=== PATIENT | female | born 1990 | race African-American/Black ===

== ENCOUNTER 2019-04-13 09:57 | Inpatient (IN) ==
[2019-04-13] MEDS ORDERED: HUMULIN R IV ONE (10:40)
[2019-04-13] MEDS ORDERED: ZOFRAN IV ONE (10:40)
[2019-04-13] MEDS ORDERED: NS 1,000 ML IV ONE (10:40)
[2019-04-13 11:02] LABS: BASO# 0.03 X1000 (0.0-0.2); BASO% 0.4 % (0.0-0.8); EOS# 0.21 X1000 (0.0-0.7); EOS% 2.9 % (0.0-10.0); HEMATOCRIT 30.9 % (37.0-47.0); IMM GRAN# 0.03 X1000 (0.0-0.04); IMM GRAN% 0.4 % (0.0-0.5); LYMPH# 0.93 X1000 (1.2-3.4); LYMPH% 12.9 % (20.5-51.1); MCH 31.5 PG (27-31); MCHC 35.6 g/dL (33-37); MCV 88.5 FL (81-99); MONO# 0.52 X1000 (0.11-0.59); MONO% 7.2 % (1.7-9.3); MPV 9.9 FL (7.4-10.4); NEUT% 76.2 % (42.2-75.2); PLT 348 X1000 (130-400); RBC 3.49 XMIL (4.2-5.4); RDW 11.7 % (11.5-14.5); WBC 7.22 X1000 (4.8-10.8)
[2019-04-13 11:16] LABS: CREATININE 1.1 mg/dL (0.5-0.9); POTASSIUM 3.9 mmol/L (3.5-5.1)
[2019-04-13 11:17] LABS: ALB/GLOB RATIO 1.1; ALBUMIN 3.5 g/dL (3.5-5.0); TOTAL BILIRUBIN 0.38 mg/dL (0.20-1.00); TOTAL PROTEIN 6.8 g/dL (6.3-8.3)
[2019-04-13 11:23] LABS: HEMOGLOBIN A1C 9.8 % (4.8-6.0)
--- NOTE | 2019-04-13 11:46 | EKG Report ---
Test Performed on : 04/13/2019 10:11:54 AM Test Reason : sob, CP Blood Pressure : / mmHG Vent. Rate : 103 BPM Atrial Rate : 103 BPM P-R Int : 124 ms QRS Dur : 078 ms QT Int : 336 ms P-R-T Axes : 060 053 049 degrees QTc Int : 440 ms Sinus tachycardia. Otherwise normal ECG No previous ECGs available Unconfirmed Result
--- NOTE | 2019-04-13 12:27 | Diag Imaging Result Doc PS360 ---
CHEST-1 VIEW - 04/13/2019 INDICATION: sob, CP COMPARISON: None FINDINGS: The lungs are normally expanded and clear. Heart size and mediastinal contours are normal. No pneumothorax or pleural effusion. IMPRESSION: Negative exam. Electronically signed by Bhavesh Cardona 04/13/2019 12:24 PM
--- NOTE | 2019-04-13 15:50 | Diag Imaging Result Doc PS360 ---
EXAM: CT ANGIOGRM PULMONARY ARTERIES 04/13/2019 HISTORY: difficulty breathing, left arm swollen TECHNIQUE: This exam was performed using automated exposure control, adjustment of mA or kV according to patient size, and/or use of iterative reconstruction technique. COMMENT: 3-D MIPS were performed. There are no previous studies available for comparison. There are no filling defects in the pulmonary arteries. The thoracic aorta is normal in caliber and there is no evidence of dissection. There is some dependent atelectasis in the lower lobes. There is a cavitary lesion in the lingula measuring 12 mm in diameter. There is a pulmonary nodule just posterior to the major fissure in the right lower lobe on image 96 measuring 8 mm in diameter. There is a nodule in the posterior medial costophrenic sulcus of the right lower lobe on image 120 measuring 6 mm in diameter. None of these lesions are calcified. There is no discrete adenopathy. Otherwise, there is no evidence of pulmonary parenchymal disease. The regional skeleton is intact. IMPRESSION: Multiple pulmonary nodules with cavitary lesion in the lingula. No evidence of pulmonary arterial filling defects. The possibility of septic emboli cannot be excluded, and further evaluation with echocardiography may be desirable. Electronically signed by Ariel Bates 04/13/2019 3:48 PM
[2019-04-13] MEDS ORDERED: 1/2 NS + KCL 20 MEQ 1,000 ML IV ONE (17:34)
[2019-04-13] MEDS ORDERED: NORVASC PO ONE ×2 (17:35→23:00)
--- NOTE | 2019-04-13 17:55 | PROVIDER DOCUMENTATION ---
This chart was entered by Carolyn Monterroso Scribe, acting as scribe for Scooter Acosta MD. HPI-Chest Pain - General Chief Complaint: High Blood Sugar Stated Complaint: BLOOD SUGAR HIGH/DIZZY Time Seen by Provider: 04/13/19 10:08 Source: patient Allergies/Adverse Reactions: Patient Allergies Allergy/AdvReac Type Severity Reaction Status Date / Time No Known Allergies Allergy Verified 04/13/19 10:31 Home Medications: Home Medication List Medication Instructions Recorded Confirmed Last Taken Type Hum Insulin NPH/Reg Insulin Hm 35 unit SQ BID 04/13/19 04/13/19 04/12/19 History [Novolin 70-30 100 Unit/ml Vial] 35 units - History of Present Illness-CP Nature of Presenting Problem: Patient is a 28 year old female who presents with chest pain, lightheadedness, and nausea that started this morning while at work. 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 Reports FSBS was 304 at work. States she takes insulin. Location: reports: central Chest Pain Radiation: reports: no radiation Quality of Pain: reports: aching Severity in ED: mild Onset/Duration: this morning Timing: still present Context/Activities at Onset: reports: light activity Associated Symptoms: reports: nausea Similar Symptoms Previously?: No Recently Seen Here or By Another Healthcare Provider: No Review of Systems - Adult - REVIEW OF SYSTEMS - ADULT Constitutional: reports: no symptoms reported. denies: chills, fever, fatique Eyes: reports: no symptoms reported Ears, Nose, Mouth & Throat: reports: no symptoms reported Cardiovascular: reports: see HPI, chest pain. denies: heart murmur, orthopnea Respiratory: reports: no symptoms reported Gastrointestinal: reports: see HPI, nausea. denies: abdominal pain, diarrhea, vomiting Genitourinary: reports: no symptoms reported Musculoskeletal: reports: no symptoms reported Integumentary: reports: no symptoms reported Neurological: reports: see HPI, other (lightheadedness). denies: dizziness/vertigo, headache/migraines, seizure Psychiatric: reports: no symptoms reported Endocrine: reports: no symptoms reported Hematologic/Lymphatic: reports: no symptoms reported Allergic/Immunologic: reports: no symptoms reported All Other Systems: Reviewed and Negative Past History - Adult - PAST MEDICAL HISTORY-ADULT Review of Records: reports: Old Records Reviewed, Nursing Assessment Review, Medications Reviewed, Social history reviewed & non-contributory. Major Childhood Illnesses: reports: denies history Cardiovascular: reports: denies history Respiratory: reports: denies history Gastrointestinal: reports: denies history Obstetrical/Gynecological: reports: denies history Genitourinary: reports: denies history Musculoskeletal: reports: denies history Neurological: reports: denies history Endocrine/Immune: reports: Diabetes Other Conditions: reports: denies history - PRIOR SURGERIES/PROCEDURES Surgical/Procedure History: reports: reviewed, not pertinent - IMMUNIZATION STATUS Childhood Immunizations: See Nurse Assessment Flu Vaccine: See Nurse Assessment - FAMILY HISTORY Family History: reviewed, not pertinent - SOCIAL HISTORY Smoking: denies Substance Use: denies Living Situation: family Physical Exam-General - PHYSICAL EXAM-ADULT Initial Vital Signs Reviewed: Yes - CONSTITUTIONAL General Appearance: alert, no apparent distress. negative: lethargic, slow to respond - HEAD, EARS, NOSE, MOUTH & THROAT HENMT: normocephalic/atraumatic, moist mucous membranes. negative: angioedema, hearing deficit - RESPIRATORY Respiratory: chest non-tender, lungs clear, normal breath sounds. negative: crackles, stridor - CARDIOVASCULAR Cardiovascular: normal peripheral pulses, regular rate, rhythm. negative: tachycardia, systolic murmur - GASTROINTESTINAL (ABDOMEN) Abdominal Exam: normal bowel sounds, non tender, soft. negative: guarding, rebound - MUSCULOSKELETAL Extremity: non-tender, normal inspection. negative: deformity, erythema, swelling - SKIN Integumentary: normal color, normal turgor, warm/dry. negative: cyanosis, diaphoresis, ecchymosis, erythema, jaundice, rash - NEUROLOGIC Neurologic: grossly normal. negative: aphasia, facial droop - PSYCHIATRIC Psych/Mental Status: normal mood/affect, oriented x 3. negative: anxious Progress - PLAN OF CARE/RESULTS Progress/Plan/Lab Results: Vital Signs - 8 hr 04/13/19 10:00 04/13/19 10:13 04/13/19 10:50 Temperature 97.8 F Pulse Rate 104 H 85 Respiratory Rate 18 20 Blood Pressure 155/99 168/102 O2 Sat by Pulse Oximetry 98 99 99 04/13/19 11:55 04/13/19 12:02 04/13/19 12:32 Temperature Pulse Rate Respiratory Rate Blood Pressure 152/91 161/101 156/100 O2 Sat by Pulse Oximetry 100 100 100 04/13/19 13:02 Temperature Pulse Rate Respiratory Rate Blood Pressure 159/108 O2 Sat by Pulse Oximetry 100 Bedside Urine ED: Urine Bedside Start: 04/13/19 10:40 Freq: ORDERED Status: Active Protocol: Activity Type Activity Date Activity User E-Sign Co-Sign Detail Recorded Client Recorded Date Recorded By Document 04/13/19 11:52 [id number] 04/13/19 11:54 [id number] 04/13/19 11:52 Point of Care [Bedside Point of Care] -Lot # [id number] - Results Negative -Control Line Visible? Yes -Additional Comment EXP: 2020-08-20 Laboratory Results - last 24 hr 04/13/19 04/13/19 04/13/19 10:04 10:25 10:25 WBC 7.22 RBC 3.49 L Hgb 11.0 L Hct 30.9 L MCV 88.5 MCH 31.5 H MCHC 35.6 RDW Std Deviation 11.7 Plt Count 348 MPV 9.9 Immature Gran % (Auto) 0.4 Neut % (Auto) 76.2 H Lymph % (Auto) 12.9 L Grady % (Auto) 7.2 Eos % (Auto) 2.9 Baso % (Auto) 0.4 Immature Gran # (Auto) 0.03 Neut # (Auto) 5.50 Lymph # (Auto) 0.93 L Grady # (Auto) 0.52 Eos # (Auto) 0.21 Baso # (Auto) 0.03 D-Dimer, Quantitative Sodium 138 Potassium 3.9 Chloride 100 Carbon Dioxide 25 Anion Gap 13 BUN 20 Creatinine 1.1 H Estimated GFR/1.73 m2 59 BUN/Creatinine Ratio 18 Glucose 290 H POC Glucose 298 H Estimat Average Glucose Hemoglobin A1c Calculated Osmolality 289 Calcium 9.0 Total Bilirubin 0.38 AST 18 ALT 15 Alkaline Phosphatase 129 H Troponin T Total Protein 6.8 Albumin 3.5 Globulin 3.3 Albumin/Globulin Ratio 1.1 04/13/19 04/13/19 04/13/19 10:25 10:25 10:25 WBC RBC Hgb Hct MCV MCH MCHC RDW Std Deviation Plt Count MPV Immature Gran % (Auto) Neut % (Auto) Lymph % (Auto) Grady % (Auto) Eos % (Auto) Baso % (Auto) Immature Gran # (Auto) Neut # (Auto) Lymph # (Auto) Grady # (Auto) Eos # (Auto) Baso # (Auto) D-Dimer, Quantitative 0.87 H Sodium Potassium Chloride Carbon Dioxide Anion Gap BUN Creatinine Estimated GFR/1.73 m2 BUN/Creatinine Ratio Glucose POC Glucose Estimat Average Glucose 235 Hemoglobin A1c 9.8 H Calculated Osmolality Calcium Total Bilirubin AST ALT Alkaline Phosphatase Troponin T < 0.010 Total Protein Albumin Globulin Albumin/Globulin Ratio 04/13/19 13:31 WBC RBC Hgb Hct MCV MCH MCHC RDW Std Deviation Plt Count MPV Immature Gran % (Auto) Neut % (Auto) Lymph % (Auto) Grady % (Auto) Eos % (Auto) Baso % (Auto) Immature Gran # (Auto) Neut # (Auto) Lymph # (Auto) Grady # (Auto) Eos # (Auto) Baso # (Auto) D-Dimer, Quantitative Sodium Potassium Chloride Carbon Dioxide Anion Gap BUN Creatinine Estimated GFR/1.73 m2 BUN/Creatinine Ratio Glucose POC Glucose 154 H Estimat Average Glucose Hemoglobin A1c Calculated Osmolality Calcium Total Bilirubin AST ALT Alkaline Phosphatase Troponin T Total Protein Albumin Globulin Albumin/Globulin Ratio Orders Category Date Time Status Admit - [facility] Routine AdmDCTranf 04/13/19 17:28 Active Activity - Up with Assistance ORDERED Care 04/13/19 17:28 Active ED: Urine Bedside ORDERED Care 04/13/19 10:40 Active Finger Stick Blood Sugar (ED) DIRECTED Care 04/13/19 10:41 Active Intake and Output-Strict ORDERED Care 04/13/19 17:28 Active Nursing- Obtain EKG ONCE Care 04/13/19 10:39 Completed Orthostatic Vital Signs NOW Care 04/13/19 17:35 Active Vital Signs Order Q 8-HR ASSESS Care 04/13/19 17:28 Active Z-Document. for Tele Applied ORDERED Care 04/13/19 17:28 Active Diabetic Diet Diet 04/13/19 17:28 Active CHEST-1 VIEW [RAD] Stat Exams 04/13/19 10:[address] ANGIOGRM PULMONARY ARTERIES [CT] Stat Exams 04/13/19 12:[address] HEAD W/O CONTRAST [CT] Routine Exams 04/13/19 17:33 Ordered A1C [A1C HGB W EST AVG GLUCOSE] [CHEM] Stat Lab 04/13/19 10:25 Completed ZACHARY W/REFLEX [HH] Stat Lab 04/13/19 17:40 Uncollected C-PEPTIDE [HH] Stat Lab 04/13/19 17:32 Ordered CBC WITH DIFF [HEME] Routine Lab 04/14/19 06:00 Uncollected CBC WITH ELECTRONIC DIFF [HEME] Stat Lab 04/13/19 10:25 Completed COMPREHENSIVE METABOLIC PANEL [CHEM] Routine Lab 04/14/19 06:00 Uncollected COMPREHENSIVE METABOLIC PANEL [CHEM] Stat Lab 04/13/19 10:25 Completed D-DIMER [COAG] Stat Lab 04/13/19 10:25 Completed FERRITIN Routine Lab 04/14/19 06:00 Ordered FOLATE Routine Lab 04/14/19 06:00 Uncollected GAD65 AB ASSAY [BLOOM] Stat Lab 04/13/19 17:32 Ordered LIPASE [CHEM] Stat Lab 04/13/19 17:33 Ordered PROTIME WITH INR [COAG] Routine Lab 04/14/19 06:00 Uncollected TOTAL IRON [CHEM] Routine Lab 04/14/19 06:00 Uncollected TROPONIN T Routine Lab 04/13/19 17:28 Uncollected TROPONIN T Stat Lab 04/13/19 10:25 Completed TSH Routine Lab 04/14/19 06:00 Uncollected UIBC W TOTAL IRON [CHEM] Routine Lab 04/14/19 06:00 Uncollected VITAMIN B12 Routine Lab 04/14/19 06:00 Uncollected 0.9% Sodium Chloride Inj [Ns] 1,000 ml Med 04/13/19 10:40 Discontinued IV 999 mls/hr 1/2 Ns + KCl 20 Meq 1,000 ml Med 04/13/19 17:34 Active IV 85 mls/hr Amlodipine [Norvasc] Med 04/14/19 09:00 Ordered 10 mg PO DAILY Amlodipine [Norvasc] Med 04/13/19 17:35 Discontinued 10 mg PO NOW ONE Insulin Degludec [Tresiba Flextouch U-100] Med 04/13/19 21:00 Ordered 20 unit SUBQ QHS Insulin Human Regular [Humulin R] Med 04/13/19 10:40 Discontinued 10 unit IV NOW ONE Insulin Lispro [Humalog] Med 04/14/19 09:00 Ordered 5 units SUBQ TID Insulin Lispro [Humalog] Med 04/13/19 21:00 Active See Protocol SUBQ 0700,1100,1600,2100 Ondansetron [Zofran] Med 04/13/19 10:40 Discontinued 4 mg IV NOW ONE Telemetry [OM.EQ] Routine Oth 04/13/19 17:28 Active EKG [EKG] Stat Ther 04/13/19 10:39 Draft Echo Spec/Color Doppler Stat Ther 04/13/19 16:34 Ordered Physical Therapy Eval/Treatment [OM.PT] Routine Ther 04/13/19 17:28 Active Venous U/S Bilateral Legs Stat Ther 04/13/19 12:59 Completed Transfer/Admit Order [TRANSFER] Routine Transfer 04/13/19 17:35 Ordered Result Diagrams: 04/13/19 10:25 04/13/19 10:25 - EKG 1 Time of EKG reading by physician:: 10:11 EKG Read and Signed by:: Scooter Acosta EKG Interpretation (*Must complete 3 of following elements*): Abnormal Rate: 103 Rhythm: sinus tachycardia Freeman: normal OK Interval: normal Comments: otherwise normal ECG - XRAY 1 XRAY Study: Chest Impression: See EMR Report ( CHEST-1 VIEW - 04/13/2019 INDICATION: sob, CP COMPARISON: None FINDINGS: The lungs are normally expanded and clear. Heart size and mediastinal contours are normal. No pneumothorax or pleural effusion. IMPRESSION: Negative exam. Electronically signed by Bhavesh Cardona 04/13/2019 12:24 PM 04/13/19 1224 Interpreting Physician: Bhavesh Cardona MD Dictated Date/Time: 04/13/19 1224 cc: Scooter Acosta MD; None,PCP) - CT/MRI 1 CT Study: Angiogram Impression: See EMR Report (Signed EXAM: CT ANGIOGRM PULMONARY ARTERIES 04/13/2019 HISTORY: difficulty breathing, left arm swollen TECHNIQUE: This exam was performed using automated exposure control, adjustment of mA or kV according to patient size, and/or use of iterative reconstruction technique. COMMENT: 3-D MIPS were performed. There are no previous studies available for comparison. There are no filling defects in the pulmonary arteries. The thoracic aorta is normal in caliber and there is no evidence of dissection. There is some dependent atelectasis in the lower lobes. There is a cavitary lesion in the lingula measuring 12 mm in diameter. There is a pulmonary nodule just posterior to the major fissure in the right lower lobe on image 96 measuring 8 mm in diameter. There is a nodule in the posterior medial costophrenic sulcus of the right lower lobe on image 120 measuring 6 mm in diameter. None of these lesions are calcified. There is no discrete adenopathy. Otherwise, there is no evidence of pulmonary parenchymal disease. The regional skeleton is intact. IMPRESSION: Multiple pulmonary nodules with cavitary lesion in the lingula. No evidence of pulmonary arterial filling defects. The possibility of septic emboli cannot be excluded, and further evaluation with echocardiography may be desirable. Electronically signed by Ariel Bates 04/13/2019 3:48 PM 04/13/19 1548 Interpreting Physician: Ariel Bates MD Dictated Date/Time: 04/13/19 1543 cc: Scooter Acosta MD; None,PCP) - ULTRASOUND (By Radiology) 1 US Study: Lower Ext (bilateral) Impression: See EMR Report (US tech states patient is negative for DVT bilaterally.) - CONSULTS/PCP/HOSPITALIST Notification #1 *Consult/PCP/Hospitalist*: VIRA Smith for Hospitalist Time Discussed: 16:33 Reason/Comments: Dr. Acosta consulted with Sarah about patient. Consult Disposition: Will see in ED, Admit Departure - Departure Date of Disposition Decision: 04/13/19 Time of Disposition Decision: 16:34 DIAGNOSIS: Cavitary lesion of lung, Pulmonary nodule, Chest pain, Uncontrolled diabetes mellitus Disposition: ADMITTED INPATIENT 09 Certified Medical Emergency: Emergent Condition: Stable Referrals and Follow-Ups: None,PCP [Primary Care Provider] - - Critical Care Note This patient required my direct & personal management of CC.: No Attestation - Physician/ HERMELINDA Attestation Patient care was provided by Advanced Practice Provider:: No The physician spent face to face time with patient:: Yes Advanced Practice Provider documentation review:: Supervising physician onsite and consulted in the evaluation and care of this patient. The physician did have a face to face encounter with the patient. This chart was documented by the indicated scribe, (Carolyn Monterroso Scribe) and accurately reflects the services I performed and decisions made by me, Scooter Acosta MD, as attested by the provider's signature.
--- NOTE | 2019-04-13 19:08 | HISTORY AND PHYSICAL ---
PRIMARY CARE PHYSICIAN: None. PRESENTING COMPLAINT: Dizziness, elevated blood pressure and sugar. HISTORY OF PRESENTING COMPLAINT: Ms. Aquino is a 28-year-old female who is known to be diabetic since age 15 years. Patient used to be on Tresiba and Humalog, but because of insurance problems, she is currently just using 70/30 35 units b.i.d. Ms. Aquino refers to be very compliant with her insulin regimen. She just recently started working with [employer]. Ms. Aquino refers that for the past 8 months she has been having persistent nausea and vomiting especially very early in the morning. After she vomits, she gets to feel better, but she has not really gone to any provider to check on that. She said she seemed to be in her regular state of health until this morning. 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 She felt like she was going to pass out. She broke out in sweat, and they took her to the nursing station where she was found to have elevated blood pressure and elevated glucose so she was brought into the emergency department where she was evaluated and recommended to be admitted. PAST MEDICAL HISTORY: Diabetes mellitus, presumably type 1. FAMILY HISTORY: Positive for diabetes, hypertension, dyslipidemia, strokes and myocardial infarctions. PAST SURGICAL HISTORY: None. SOCIAL HISTORY: Patient has never been . No kids. Just started working at [employer] for the last 1 month. She denies any smoking or any alcohol use nor any recreational drugs. REVIEW OF SYSTEMS: Fourteen-point review of systems conducted with Ms. Aquino unremarkable except what we have in the HPI. Ms. Aquino also refers that at least once per week, she has mild diarrhea. PHYSICAL EXAMINATION: VITALS: Blood pressure is currently 159/108, pulse is 85, respiration is 18, temperature is 97.8. GENERAL EXAM: Ms. Aquino is a 28-year-old female. She is in bed, no distress. HEENT: Mucosa is pink and moist. Anicteric. Acyanotic. Head is normocephalic and atraumatic. Mouth: There is poor dentition. NECK: Supple. No JVD. No carotid bruit. Trachea is midline, and there is no thyromegaly. RESPIRATORY SYSTEM: There is good air entry bilaterally. No crepitations. No rhonchi. No accessory muscle use. CARDIOVASCULAR: Regular rate and rhythm. There are no murmurs, no rubs, no gallops. [place] beat is at 5th intercostal space, midclavicular line. GASTROINTESTINAL: Abdomen is soft, nontender. Bowel sounds present. There is no hepatosplenomegaly. EXTREMITIES: No pedal edema. Distal pulses are present. CENTRAL NERVOUS SYSTEM: Patient is awake, alert, oriented x4. Motor is 5/5 in all extremities. Sensation is intact. Cranial nerves 2 through 12 have been grossly examined, and they are intact. PSYCHIATRIC: The patient is very cooperative, has good understanding and judgment. LABORATORY DATA: 1. WBC is 7.22, hemoglobin is 11.0, platelet count of 348,000. Chemistry is also reviewed. Creatinine is 1.1. No previous labs to compare. Glucose is 290. The patient's A1c is 9.8. Troponin is negative. 2. EKG shows sinus tachy. No ST-segment abnormality or T-waves abnormalities. IMAGING STUDIES: 1. A chest x-ray was negative. 2. A CTA of the lungs show multiple pulmonary nodules with cavitary lesion in the lingula. No evidence of pulmonary artery filling defects. The possibility of septic emboli cannot be excluded. Further evaluation with echocardiogram may be desirable. ASSESSMENT: Ms. Aquino who was known to be diabetic presented to the emergency department because of what appears to be near syncope. She was also found to be extremely hypertensive with uncontrolled diabetes. 1. Near-syncope at work, presumably due to intravascular depletion (orthostatic hypotension). We will order orthostatic vitals to check on that. The patient will be gently hydrated overnight, and we will recheck on her vitals in the morning as well. 2. Severe uncontrolled diabetes mellitus with presenting A1c of 9.8. Ms. Aquino gave a history that will be consistent with a type 1 diabetes mellitus so I will start her on her previous regimen, which was Tresiba with Humalog. We will also get a director of social work to assist with medications. 3. Newly diagnosed hypertension. I think this could potentially also could have caused some of her dizziness at work. I will start her on amlodipine for now because of mildly elevated renal abnormality until we have that corrected. 4. Renal failure. Etiology and chronicity is unknown. I presume this is probably acute. We will hydrate the patient overnight and recheck on her renal functions in the morning. 5. Multiple pulmonary nodules with cavitary lesion in the lingula. This is an incidental finding on CTA. The patient at this point does not have any respiratory symptoms. We will, however, do an echocardiogram to rule out any possible septic emboli. We will also get Pulmonary Medicine to evaluate the patient. For now I will do ZACHARY to rule out any possible collagen vascular disease. Other possible etiologies could be chronic infections so I would do QuantiFERON test to rule out any latent TB. Fungal infection could also be a potential, especially histoplasmosis, but as I said, the patient is currently not symptomatic. We will get Pulmonary to help us with these. I have explained my plan to Ms. Aquino. There was another female friend in the room with her, and they both voiced understanding. cc: Reno Fisher MD
--- NOTE | 2019-04-13 20:28 | Diag Imaging Result Doc PS360 ---
EXAM: CT HEAD W/O CONTRAST 04/13/2019 HISTORY: encephalopathy TECHNIQUE: This exam was performed using automated exposure control, adjustment of mA or kV according to patient size, and/or use of iterative reconstruction technique. COMMENT: There is no evidence of mass effect, bleed, or abnormal extra-axial fluid collections. The visualized paranasal sinuses are clear. The calvarium is intact. There are no previous studies available for comparison. IMPRESSION: No evidence of acute intracranial disease. Electronically signed by Ariel Bates 04/13/2019 8:25 PM
[2019-04-13] MEDS: HUMALOG SUBQ SCH ×2 (20:49→23:50)
[2019-04-13] MEDS ORDERED: TRESIBA FLEXTOUCH U-100 SUBQ SCH (21:00)
[2019-04-13] MEDS ORDERED: INSULIN PEN NEEDLES ONE (23:09)
[2019-04-13] MEDS ORDERED: TYLENOL PO PRN (23:33)
[2019-04-14] MEDS: HUMALOG SUBQ SCH ×4 (07:57→12:07)
[2019-04-14] MEDS ORDERED: NORVASC PO SCH (09:00)
[2019-04-14 09:07] LABS: BASO# 0.04 X1000 (0.0-0.2); BASO% 0.5 % (0.0-0.8); EOS# 0.28 X1000 (0.0-0.7); EOS% 3.8 % (0.0-10.0); HEMATOCRIT 30.7 % (37.0-47.0); HEMOGLOBIN 10.5 g/dL (12.0-16.0); LYMPH# 1.44 X1000 (1.2-3.4); LYMPH% 19.4 % (20.5-51.1); MCH 30.5 PG (27-31); MCHC 34.2 g/dL (33-37); MCV 89.2 FL (81-99); MONO# 0.45 X1000 (0.11-0.59); MONO% 6.1 % (1.7-9.3); MPV 9.3 FL (7.4-10.4); NEUT% 70.2 % (42.2-75.2); PLT 311 X1000 (130-400); RBC 3.44 XMIL (4.2-5.4); RDW 11.7 % (11.5-14.5); WBC 7.41 X1000 (4.8-10.8)
[2019-04-14 09:15] LABS: PROTIME 13.9 Seconds (11.0-16.0)
[2019-04-14 09:51] LABS: AGAP 8; ALB/GLOB RATIO 0.9; ALBUMIN 3.1 g/dL (3.5-5.0); ALKALINE PHOSPHATASE 113 U/L (32-104); BUN 14 mg/dL (8-22); CALCIUM 8.4 mg/dL (8.8-10.2); CHLORIDE 102 mmol/L (98-107); COSMO 279; CREATININE 0.8 mg/dL (0.5-0.9); ESTIMATED GFR > 60; GLUCOSE 255 mg/dL (70-104); GOT 17 U/L (10-30); GPT 12 U/L (10-36); IRON SATURATION 31 %; POTASSIUM 4.2 mmol/L (3.5-5.1); SODIUM 135 mmol/L (136-145); TCO2 25 mmol/L (25-35); TIBC 204 ug/dL; TOTAL BILIRUBIN 0.28 mg/dL (0.20-1.00); TOTAL IRON 63 ug/dL (49-151); TOTAL PROTEIN 6.5 g/dL (6.3-8.3); UNBOUND IRON 141 ug/dL (112-346)
[2019-04-14 10:43] LABS: TSH 2.56 uIUmL (0.27-4.20)
[2019-04-14] MEDS ORDERED: PHENERGAN IV PRN (11:36)
[2019-04-14] MEDS ORDERED: SODIUM CHLORIDE 0.9% INJ PRN (11:36)
--- NOTE | 2019-04-14 12:23 | PROGRESS NOTE ---
DATE: 04/14/2019 SUBJECTIVE: This morning Ms. Aquino refers to be feeling a lot better. However, she said when she woke up early in the morning she had some nauseation and she vomited, which is something that she has been dealing with for the past 8 months. However, she has not had any more dizziness or sensation of wanting to pass out. OBJECTIVE: Vital signs: Blood pressure 124/74, pulse of 105, respirations 18, and temperature 98.1 degrees. The patient is saturating 100%. General: Ms. Aquino is a 28-year-old female. She is in bed in no distress. Mucosa is pink and moist. Anicteric. Acyanotic. Neck: Supple. Chest: Clear to auscultation. No crepitations. No rhonchi. Cardiovascular: Regular rate and rhythm. No murmurs, no rubs, no gallops. Abdomen: Soft. Nontender. Bowel sounds are present. Extremities: No pedal edema. STONE PAVER: Patient is awake, alert, and oriented. There is no focal neurological deficit. LABORATORY DATA: WBC 7.41, hemoglobin is 10.5, and platelet count of 311,000. Chemistry is also reviewed. Creatinine has normalized to 0.8. Glucose was 255 this morning. Iron studies is all within normal range. Lipase was normal. Folate is low of 4.5. ASSESSMENT: 1. Near syncope at work, presumably due to orthostatic hypotension improved. Clinical volume depletion on presentation resolved. 2. Severe uncontrolled diabetes mellitus with presenting A1c of 9.8. The patient has been started on insulin regimen. Glucose levels are getting better. 3. Hypertension improved on current regimen. 4. Acute kidney resolved. 5. Persistent nausea and vomiting especially early in the morning. We will do ultrasound of the gallbladder to rule out any gallstones. If this is negative, we will start Ms. Aquino on PPI and symptomatic promethazine. Advised that she follows up with GI on outpatient basis. 6. Multiple pulmonary nodules. An echocardiogram has been done to rule out septic emboli. The patient's labs so far and vitals does not suggest any current ongoing acute infection. PLAN: In general, Ms. Aquino seems to be doing a lot better. She is no more dizzy or wanting to pass out. Glucose and blood pressures are under better control. She just did an echocardiogram, and we are pending the report on that. We are also waiting on an ultrasound of the gallbladder to rule out any gallstones as the cause of her nausea early in the morning. cc: Reno Fisher MD
--- NOTE | 2019-04-14 15:15 | Diag Imaging Result Doc PS360 ---
EXAM: US GB < RUQ (LIMITED) HISTORY: right gall stones TECHNIQUE: Right upper quadrant ultrasound COMPARISON: None. FINDINGS: Normal pancreatic head. The body and tail are obscured. No aortic aneurysm. Normal inferior vena cava. No focal hepatic abnormality. No ascites. Normal gallbladder. No stones. The wall is not thickened. The common bile duct measures 3 mm. Normal right kidney. No hydronephrosis. IMPRESSION: Normal right upper quadrant ultrasound. Electronically signed by Jadiel Sosa 04/14/2019 3:12 PM
--- NOTE | 2019-04-14 15:22 | ECHO REPORT ---
ORDER DATE: 04/13/2019 INTERPRETING PHYSICIAN: Dr. Black Gamez. ECHOCARDIOGRAPHIC MEASUREMENTS: 1. Interventricular septum 1.2 cm. 2. Left ventricular posterior wall 1.1 cm. 3. Diastolic diameter 4.1 cm. 4. Left atrium 3.2 cm. 5. Aorta 3.4 cm. SUMMARY OF THE TWO-DIMENSIONAL IMAGIN. Normal left ventricular cavity size. 2. Estimated ejection fraction of 65-70%. 3. Mitral valve was normal. 4. Aortic valve leaflets were trileaflet. 5. Tricuspid valve was normal. 6. Peak velocity across the aortic valve less than 2 m/sec. There is no aortic stenosis. 7. There is mild tricuspid regurgitation. Peak velocity across the tricuspid valve was 2.7 m/sec. 8. Pulmonary artery systolic pressure of 40 mmHg. 9. There is mild mitral regurgitation. 10. There is no aortic stenosis or regurgitation. 11. There is no pericardial effusion. cc: Black Gamez MD
[2019-04-14 15:47] VITALS: BP 149/88
--- NOTE | 2019-04-14 15:52 | Extremity Venous Study ---
PROCEDURE NAME: Venous U/S Bilateral Legs - 04/13/2019 BILATERAL LOWER EXTREMITY VENOUS STUDY: REQUESTING PHYSICIAN: the Emergency Department. SHOE LASTER: Vitaly. INDICATIONS: 1. Chest pain. 2. Elevated D-dimer. EQUIPMENT: Performable Vivid E9 ultrasound system, with a 9 L-D transducer. TECHNIQUE: Images of bilateral lower extremity venous systems were obtained in both sagittal and transverse planes. Doppler was used to evaluate veins for spontaneity, phasicity, respiratory excursion and digital augmentation. RESULTS: Normal venous compression. Normal venous flow. No obvious superficial or deep venous thrombosis noted. INTERPRETATION: Essentially normal bilateral lower extremity venous study. cc: Jose Moncada MD [facility]ITALLe[facility]
[2019-04-14] MEDS ORDERED: FOLIC ACID PO SCH (21:00)
[2019-04-14] MEDS ORDERED: TRESIBA FLEXTOUCH U-100 SUBQ SCH (21:00)
[2019-04-14] MEDS ORDERED: PRILOSEC PO SCH (21:00)
--- NOTE | 2019-04-15 09:03 | DISCHARGE SUMMARY ---
ADMISSION DATE: 04/13/2019 DISCHARGE DATE: 04/14/2019 DISPOSITION: Home. FOLLOWUP: 1. Dr. Cruz. 2. Dr. Diaz. CONSULTATIONS DURING THIS ADMISSION: None. IMAGING STUDIES OF SIGNIFICANCE: 1. A chest x-ray was negative. 2. Doppler studies of the lower extremity was negative for obvious clot. 3. A CTA shows multiple pulmonary nodules. 4. An echocardiogram showed an ejection fraction of 65 to 70 percent. No intracardiac abnormality. 5. A CT scan of the head showed no evidence of intracranial pathology. 6. A CT scan of the abdomen showed normal right upper quadrant. ADMISSION DIAGNOSES: 1. Near-syncope at work. 2. Orthostatic hypotension. 3. Severe uncontrolled diabetes mellitus with presenting A1c of 9.8. 4. Hypertension. 5. Renal failure. 6. Pulmonary nodules. DIAGNOSES AT THE TIME OF DISCHARGE: 1. Near-syncope at work secondary to orthostatic hypotension. The patient was fluid resuscitated. She felt better. 2. Severe uncontrolled diabetes mellitus with presenting A1c of 9.8. The patient has been started on an insulin regimen. 3. Hypertension, is controlled. 4. Acute kidney injury, resolved. 5. Persistent nausea and vomiting, especially in the morning. Ultrasound of the gallbladder was negative. The patient was started on a trial of omeprazole and promethazine, and has been advised to follow up with gastroenterology. 6. Multiple pulmonary nodules. Echocardiogram was negative for intracardiac pathology. Doppler ultrasounds of the lower extremities were negative for any deep vein thrombosis. The patient has been advised to follow up with pulmonary medicine. She is currently asymptomatic from a pulmonary standpoint. 7. Folic acid deficiency. DISCHARGE MEDICATIONS: 1. Folic acid 1 mg b.i.d. 2. Insulin lispro 5 units 3 times per day with meals. 3. Promethazine 25 mg p.o. q.4 p.r.n. 4. Omeprazole 40 mg b.i.d. 5. Tresiba 25 units subcutaneous daily. 6. Amlodipine 5 mg p.o. daily. PRESENTING COMPLAINT: Dizziness, elevated blood pressure and sugar at work. HISTORY OF PRESENTING COMPLAINT: Ms. Aquino is a 28-year-old, female who refers to have been at work and was feeling dizzy. Coworkers took her to the nursing station and she was found to have extremely elevated blood pressure and glucose so was advised to come to the emergency department. Upon presentation, Ms. Aquino was evaluated. Found to be volume depleted and glucose ridiculously high with A1c of 9.8. She was also found to have a presenting blood pressure of 168/102. She was subsequently recommended admission. HOSPITAL COURSE: Ms. Aquino was admitted overnight. Was adequately fluid resuscitated, started on amlodipine. Blood pressure got better. She was also started on insulin regimen. She felt overall improved. However, she still had mild nauseation early the day of discharge. An ultrasound of the right upper quadrant was done which was completely negative. We think she probably has either some ulcer or she might have gastroparesis. She has been advised to follow up with GI. She has been started on a trial of PPI and promethazine. During the workup, Ms. Aquino was also found to have multiple nodules in the lungs. Etiology was unclear. Septic emboli was suggested. However, echocardiogram was completely normal and she did not have any pulmonary symptoms. She has been advised to follow up with pulmonary medicine on an outpatient basis. This morning, Ms. Aquino refers to feel a lot better. Please refer to the details in my progress notes. We think she is stable for discharge. All the discharge instructions have been discussed with her. She voiced understanding. Time spent for discharge is 34 minutes. The patient is also advised to get a primary care doctor. cc: MD Kapil Villalta MD Rony Najjar MTDD
== END 2019-04-14 17:28 | disposition home or self-care (01) | DRG 312 ==
LOC: ED 09:57 → 3N 18:02
PROVIDERS: ATTEND Internal Medicine
CPT/HCPCS: 70450; 71010; 71045; 71275; 76705; 80053; 82607; 82728; 82746; 82948; 83036; 83540; 83550; 83690; 84443; 84484; 84681; 85025; 85379; 85610; 86038; 86039; 86341; 93005; 93306; 93970; 97161; A9270; J1815; J2405; J3480; J7030; Q9967; XXXXX